=== PATIENT | male | born 1975 | race Caucasian/White ===

== ENCOUNTER 2022-08-08 14:23 | Emergency (ER) | payer OTHER ==
[~2022-08-08] VITALS: Ht 172.7 cm; Wt 129.5 kg
[2022-08-08 15:53] VITALS: BP 148/88
== END 2022-08-08 15:55 | disposition home or self-care (01) ==
LOC: M ED 14:23
DX: S92.422A Displaced fracture of distal phalanx of left great toe, initial encounter for closed fracture (principal); W23.0XXA Caught, crushed, jammed, or pinched between moving objects, initial encounter; Y92.099 Unspecified place in other non-institutional residence as the place of occurrence of the external cause

== ENCOUNTER 2022-08-19 23:01 | Emergency (ER) | payer OTHER ==
[~2022-08-19] VITALS: Ht 172.7 cm; Wt 133.3 kg
[2022-08-19 23:02] VITALS: BP 154/94
[2022-08-20] MEDS ORDERED: KETOROLAC 30 MG/ML 1ML VIAL IV ONE (01:30)
[2022-08-20] MEDS ORDERED: LIDOCAINE 5% (LIDODERM) PATCH TD ONE (01:30)
[2022-08-20 02:02] LABS: BASO # 0.1 10^3/uL (0.0-0.2); BASO % 0.7 % (0.0-1.0); EOS # 0.3 10^3/uL (0.0-0.5); EOS % 3.4 % (0.0-3.0); HEMATOCRIT 43.4 % (42.0-52.0); HEMOGLOBIN 14.6 g/dl (13.5-17.5); LYMPH # 3.8 10^3/uL (1.5-5.0); LYMPH % 46.8 % (24.0-44.0); MEAN CORPUSCULAR HEMOGLOBIN 30.5 pg (27.0-33.0); MEAN CORPUSCULAR HGB CONC 33.6 g/dl (32.0-36.5); MEAN CORPUSCULAR VOLUME 90.8 fl (80.0-96.0); MONO # 0.9 10^3/uL (0.0-0.8); MONO % 11.4 % (2.0-8.0); NEUTROPHILS # 3.1 10^3/uL (1.5-8.5); NEUTROPHILS % 37.7 % (36.0-66.0); PLATELET COUNT, AUTOMATED 262 10^3/uL (150-450); RED BLOOD COUNT 4.78 10^6/uL (4.30-6.10); WHITE BLOOD COUNT 8.2 10^3/uL (4.0-10.0)
[2022-08-20] MEDS ORDERED: ISOVUE-370 76% 100ML VIAL As Ordered ONE (02:03)
[2022-08-20] MEDS ORDERED: LIDO5DIS41 TOP (03:29)
[2022-08-20] MEDS ORDERED: NAPR-837 PO (03:29)
[2022-08-20] MEDS ORDERED: **NOTE PATIENT COMMENT** MISC XX ONE (13:00)
== END 2022-08-20 03:44 | disposition home or self-care (01) ==
LOC: M ED 23:01
DX: M54.9 Dorsalgia, unspecified (principal); W10.9XXA Fall (on) (from) unspecified stairs and steps, initial encounter; Y92.099 Unspecified place in other non-institutional residence as the place of occurrence of the external cause
CPT/HCPCS: 74177; 80047; 85025; 96374; 99283; J1885; Q9967

== ENCOUNTER 2022-12-21 12:31 | Emergency (ER) | payer OTHER ==
[~2022-12-21] VITALS: Ht 172.7 cm; Wt 98.4 kg
[~2022-12-21 12:31] MED LIST: LIDO5DIS41 TOP; NAPR-837 PO
[2022-12-21] MEDS ORDERED: IBUPROFEN 600MG TAB PO ONE (13:15)
[2022-12-21 14:40] VITALS: BP 160/72
== END 2022-12-21 15:13 | disposition home or self-care (01) ==
LOC: M ED 12:31
DX: S93.401A Sprain of unspecified ligament of right ankle, initial encounter (principal); X50.0XXA Overexertion from strenuous movement or load, initial encounter; Y92.39 Other specified sports and athletic area as the place of occurrence of the external cause

== ENCOUNTER 2024-01-01 01:53 | Emergency (ER) | payer OTHER ==
[~2024-01-01] VITALS: Ht 172.7 cm; Wt 126.7 kg
[2024-01-01] MEDS ORDERED: NAPR-837 PO (07:41)
[2024-01-01 07:58] VITALS: BP 177/105; TEMP 96.5; O2SAT 94
== END 2024-01-01 08:00 | disposition home or self-care (01) ==
LOC: M ED 01:53
DX: S96.912A Strain of unspecified muscle and tendon at ankle and foot level, left foot, initial encounter (principal); S96.911A Strain of unspecified muscle and tendon at ankle and foot level, right foot, initial encounter; E66.9 Obesity, unspecified; Z79.1 Long term (current) use of non-steroidal anti-inflammatories (NSAID)